=== PATIENT | male | born 1960 | race Caucasian/White ===

== ENCOUNTER 2024-08-25 10:34 | Day surgery (SDC) | payer MEDICARE, MEDICAID ==
[2024-08-25] MEDS: Lactated Ringers 1,000 ML IV SCH (10:52)
[2024-08-25] MEDS ORDERED: Propofol 200 MG/20 ML SDV ONE (12:15)
[2024-08-25] MEDS ORDERED: fentaNYL 100 MCG/2 ML SDV ONE (12:15)
[2024-08-25] MEDS ORDERED: Midazolam 1 MG/ML 2 ML SDV ONE (12:15)
== END 2024-08-25 14:10 | disposition home or self-care (01) ==
LOC: VM.SDS 10:34
PROVIDERS: ATTEND Family Medicine
DX: Z12.11 Encounter for screening for malignant neoplasm of colon (principal); R19.5 Other fecal abnormalities; D12.0 Benign neoplasm of cecum; D12.6 Benign neoplasm of colon, unspecified; K63.5 Polyp of colon; K57.30 Diverticulosis of large intestine without perforation or abscess without bleeding; K64.8 Other hemorrhoids; J44.9 Chronic obstructive pulmonary disease, unspecified; F17.210 Nicotine dependence, cigarettes, uncomplicated; Z79.899 Other long term (current) drug therapy
CPT/HCPCS: 00811; 88305; J2250; J2704; J3010; J7120